=== PATIENT | female | born 2005 ===

== ENCOUNTER 2024-09-15 13:03 | Emergency (ER) | payer BC ==
[~2024-09-15] VITALS: Ht 175.3 cm; Wt 61.2 kg
[2024-09-15 14:03] VITALS: BP 109/68; O2SAT 99
== END 2024-09-15 14:41 | disposition home or self-care (01) ==
LOC: ER 13:03 → EMR PED 13:31
DX: T78.1XXA Other adverse food reactions, not elsewhere classified, initial encounter (principal); Z91.018 Allergy to other foods; Y92.89 Other specified places as the place of occurrence of the external cause